=== PATIENT | female | born 1975 | race Caucasian/White ===

== ENCOUNTER → 2017-11-01 | Outpatient (CLI) | payer BC ==
[~2017-11-01] MED LIST: IBUP600 PO; OXYC5 PO; PHENDIMETRAZINE PO; SERT100 PO; Zofran8 MG PO
== END | disposition home or self-care (01) ==
LOC: LAB 19:18
PROVIDERS: Internal Medicine
DX: Z01.419 Encounter for gynecological examination (general) (routine) without abnormal findings (principal)
CPT/HCPCS: G0145

== ENCOUNTER 2019-05-14 17:34 | Emergency (ER) | payer OTHER, BC ==
[~2019-05-14] VITALS: Ht 165.1 cm; Wt 108.9 kg
[2019-05-14] MEDS ORDERED: KETO10 PO (18:17)
== END 2019-05-14 19:12 | disposition home or self-care (01) ==
LOC: ER 17:34
DX: S70.12XA Contusion of left thigh, initial encounter (principal); S70.11XA Contusion of right thigh, initial encounter; Z91.018 Allergy to other foods; Z79.899 Other long term (current) drug therapy; V49.40XA Driver injured in collision with unspecified motor vehicles in traffic accident, initial encounter
CPT/HCPCS: 99284

== ENCOUNTER → 2020-09-01 | Outpatient (CLI) | payer BC ==
[~2020-09-01] MED LIST changes: +ACET325 PO; +BUPR150ER PO; +DOCU100 PO; +IBUP800 PO; +KETO10 PO; +MODAFINIL PO; +Vivelle-Dot1 EAC1 TOP
[2020-09-02 15:10] LABS: HPV 16 Negative (Negative); HPV 18 Negative (Negative); HPV OTHER HR TYPES Negative (Negative)
== END | disposition home or self-care (01) ==
LOC: LAB EV 12:00 → LAB SHORT 12:00
PROVIDERS: Obstetrics & Gynecology
DX: Z01.419 Encounter for gynecological examination (general) (routine) without abnormal findings (principal)
CPT/HCPCS: 87624; G0123

== ENCOUNTER 2020-11-20 06:15 | Day surgery (SDC) | payer BC, SELFPAY ==
[~2020-11-20] VITALS: Ht 162.6 cm; Wt 109.8 kg
[~2020-11-20 06:15] MED LIST changes: -ACET325 PO; -DOCU100 PO; -IBUP800 PO; -Vivelle-Dot1 EAC1 TOP
--- NOTE | 2020-11-20 06:52 | NUR ---
Ambulatory in Day Surgery History, Chart, Medications and Allergies reviewed before start of procedure. Lungs clear T/O to Auscultation. Pre-Op teaching done. Pt verbalizes understanding.
[2020-11-20] MEDS ORDERED: OXYC5 PO (14:34)
[2020-11-20] MEDS ORDERED: IBUP800 PO (14:35)
[2020-11-20] MEDS ORDERED: ACET325 PO (15:24)
[2020-11-20] MEDS ORDERED: DOCU100 PO (15:24)
[2020-11-20] MEDS ORDERED: Vivelle-Dot1 EAC1 TOP (15:25)
--- NOTE | 2020-11-20 15:42 | NUR ---
DISCHARGE PT EDUCATED ON AND RECEIVED PRINTED DISCHARGE INSTRUCTIONS AND VERBALIZED AN UNDERSTANDING. HARD RX GIVEN TO SIG OTHER TO FILL. IV DC'D. PT VOIDING SPONTANEOUSLY, TYLOR PO INTAKE, PAIN MANAGED WITH ORAL PAIN MEDICATIONS AND PT AMBULATING INDEPENDENTLY. PT GETTING DRESSED AND GATHERING PERSONAL BELONGINGS AND PLANNING TO DISCHARGE HOME.
--- NOTE | 2020-11-20 16:04 | NUR ---
PT DISCHARGED HOME AT THIS TIME WITH ALL PERSONAL BELONGINGS AND SIG OTHER AT SIDE.
== END 2020-11-20 16:05 | disposition home or self-care (01) ==
LOC: ORSCMMR 06:15 → ORD 06:15 → ORSCMMR 10:58 → BC 10:58 → ORD 16:05 → BC 16:05 → ORSCMMR 16:05
PROVIDERS: Obstetrics & Gynecology
PROC: 0UT7FZZ Resection of Bilateral Fallopian Tubes, Via Natural or Artificial Opening With Percutaneous Endoscopic Assistance (ICD-10-PCS; principal; 2020-11-20 07:30)
PROC: 0UT9FZZ Resection of Uterus, Via Natural or Artificial Opening With Percutaneous Endoscopic Assistance (ICD-10-PCS; principal; 2020-11-20 07:30)
PROC: 0UT2FZZ Resection of Bilateral Ovaries, Via Natural or Artificial Opening With Percutaneous Endoscopic Assistance (ICD-10-PCS; principal; 2020-11-20 07:30)
DX: D25.9 Leiomyoma of uterus, unspecified (principal); N92.0 Excessive and frequent menstruation with regular cycle; N80.0 Endometriosis of uterus; N83.292 Other ovarian cyst, left side; N83.291 Other ovarian cyst, right side; E78.00 Pure hypercholesterolemia, unspecified; F32.9 Major depressive disorder, single episode, unspecified; E66.01 Morbid (severe) obesity due to excess calories; Z68.41 Body mass index [BMI] 40.0-44.9, adult; Z79.899 Other long term (current) drug therapy
CPT/HCPCS: 88108; 88305; 88307; 88331; A9270; J0171; J0690; J1100; J1885; J2250; J2405; J2704; J3010; J7120

== ENCOUNTER → 2020-12-15 | Outpatient (CLI) | payer BC ==
[~2020-12-15] MED LIST changes: +ACET325 PO; +DOCU100 PO; +IBUP800 PO; +Vivelle-Dot1 EAC1 TOP
== END | disposition home or self-care (01) ==
LOC: PLD 11:13 → LAB SHORT 11:13
DX: D22.4 Melanocytic nevi of scalp and neck (principal)
CPT/HCPCS: 88305

== ENCOUNTER → 2021-03-18 | Outpatient (CLI) | payer BC | LOC: LAB 08:57 → LAB SHORT 08:57 | DX: N39.0 Urinary tract infection, site not specified (principal) | CPT/HCPCS: 87077; 87086; 87186 ==